=== PATIENT | male | born 1980 | race Caucasian/White ===

== ENCOUNTER 2016-04-11 21:43 | Observation (INO) | payer OTHER ==
[~2016-04-11] VITALS: Ht 162.6 cm; Wt 75.9 kg
[2016-04-12] VITALS (11 sets, daily range): BP systolic 102–122; BP diastolic 61–88; PULSE 72–110; RESP 16–20; Ht 162.6 cm; Wt 75.9 kg
[2016-04-12] MEDS ORDERED: morphine 2 MG INJ IV PRN (02:00)
[2016-04-12] MEDS ORDERED: METHYLPREDNISOLONE 125 MG INJ IV SCH (02:00)
[2016-04-12] MEDS ORDERED: ALBUTEROL/IPRATROPIUM (NEB) 3 ML AMP HHN PRN (02:00)
[2016-04-12 07:19] LABS: BASOPHILS % 0.1 % (0.0-2.0); HEMATOCRIT 43.5 % (42.0-52.0); HEMOGLOBIN 15.2 g/dl (14.0-18.0); LYMPHOCYTES # 0.6 10^3/ul (0.8-2.9); MEAN CORPUSCULAR HEMOGLOBIN 29.2 pg (29.0-33.0); MEAN CORPUSCULAR HGB CONC 34.9 g/dl (32.0-37.0); MEAN CORPUSCULAR VOLUME 83.6 fl (82.0-101.0); MEAN PLATELET VOLUME 7.6 fl (7.4-10.4); MONOCYTE # 0.1 10^3/ul (0.3-0.9); MONOCYTES % 2.6 % (0.0-11.0); NEUTROPHILS % 87.3 % (39.0-77.0); PLATELET COUNT 277 10^3/UL (140-440); RED CELL DISTRIBUTION WIDTH 12.5 % (11.5-14.5); UNCORRECTED WBC 5.7 10^3/ul (4.8-10.8); WHITE BLOOD COUNT 5.7 10^3/ul (4.8-10.8)
[2016-04-12 07:22] LABS: CONDITION 1
[2016-04-12 07:37] LABS: POTASSIUM 4.7 mmol/L (3.5-5.1)
[2016-04-12 07:39] LABS: CREATININE 0.77 mg/dl (0.61-1.24)
[2016-04-12 07:40] LABS: CALCIUM 8.8 mg/dl (8.4-10.2); MAGNESIUM 2.4 mg/dl (1.7-2.5)
--- NOTE | 2016-04-12 07:53 | HP ---
DATE OF ADMISSION: 04/12/2016 TIME: 6:15 a.m. CHIEF COMPLAINT: Shortness of breath. HISTORY OF PRESENT ILLNESS: The patient is a 36-year-old male with a history of asthma. He has had asthma since he was a child. The patient does take Advair at home, as well as albuterol nebulizer and an inhaler. He states that he mostly used the inhaler. The patient states that over the past 3 days he has been feeling worsening of his shortness of breath and asthma and yesterday it required him to come to the ED. He went to [facility]. He was noted to have a fever. He received s everal breathing treatments and did improve. He was transferred over to [facility] for ins urance reasons. He currently states that he feels much better and he has no other complaints. PAST MEDICAL HISTORY: Asthma. PAST SURGICAL HISTORY: Denies. HOME MEDICATIONS: 1. Advair. 2. Albuterol, both nebulizer and inhaler. ALLERGIES: 1. ACETAMINOPHEN. 2. IBUPROFEN. 3. SALICYLATES. FAMILY HISTORY: Mother with asthma. SOCIAL HISTORY: He smokes marijuana occasionally. Denies any tobacco abuse, any alcohol abuse, or drug abuse. REVIEW OF SYSTEMS: A 12-point review of systems was negative, except for that in the HPI. PHYSICAL EXAMINATION: VITAL SIGNS: At the outside facility the patient did have a fever. Temperature 37.6 Celsius curren tly, pulse 72, respiratory rate is 20, saturations 96%. GENERAL: In no acute distress, alert and oriented. HEENT: Normocephalic, atraumatic. LUNGS: Clear to auscultation. CARDIOVASCULAR: Regular rate and rhythm. ABDOMEN: Nondistended, nontender, soft. EXTREMITIES: No clubbing, cyanosis, or edema. LABORATORIES: From the outside facility showed a white count of 14.4, hemoglobin of 16.3, platelets are 258. Sodium is 136, potassium is 3.3, chloride is 100, CO2 is 26, glucose is 118, creatinine i s 1.0. Lactic acid was 2.0, mag was 2.0. Influenza A and B antigen test showed no antigen detected . DIAGNOSTICS: Chest x-ray showed no acute disease. ASSESSMENT AND PLAN: 1. Sepsis secondary to upper respiratory infection. The patient did meet sepsis criteria with a fe neftaly, white count and tachycardia. The patient has no pneumonia. The patient likely has an upper re spiratory infection. Influenza was negative. He may still have sensitive. Will treat with Finney iflu, as well as azithromycin and Rocephin. 2. Asthma exacerbation secondary to upper respiratory infection. Will continue with home Advair. Will give albuterol nebulizer as needed. Will give DuoNeb as needed. Will give IV steroids. Will get a pulmonology consultation. Will also treat the upper respiratory infection. 3. Prophylaxis. Ambulation. Dictated By: DANY OROZCO MD BS/NTS Conf#: [id number] DID#: [id number]
[2016-04-12] MEDS: OSELTAMIVIR 75 MG CAP PO SCH ×2 (08:47→20:12)
[2016-04-12] MEDS: SALMETEROL/FLUTICASONE 250/50 INHA INH SCH ×2 (08:48→20:13)
[2016-04-12] MEDS: CEFTRIAXONE 1 GM/50 ML (PMX) 50 ML IVPB SCH (08:58)
[2016-04-12] MEDS: AZITHROMYCIN 500MG/NS (PMX) 250 ML IVPB SCH (09:27)
[2016-04-12] MEDS: predniSONE 20 MG TAB PO SCH (13:28)
--- NOTE | 2016-04-12 13:43 | CONS ---
DATE OF ADMISSION: 04/12/2016 DATE OF CONSULTATION: 04/12/2016 TYPE OF CONSULTATION: Pulmonary. REASON FOR CONSULTATION: Shortness of breath. Thank you, Dr. Moralez, for this consultation. HISTORY OF PRESENT ILLNESS: This is a 36-year-old gentleman with a history of asthma since hoo d. No intubations or mechanical ventilation, no prolonged hospital stays, at this time presenting w ith a 3-day history of increasing shortness of breath, orthopnea and cough. Mild fever. No hemopty sis, no hematemesis. The patient was seen in the emergency room at [facility] and transfer red here to [facility] for insurance purposes. The patient states he takes Advair at home and albuterol nebulizers as needed. His symptoms are normally well controlled. He denies a ny nocturnal symptoms prior to this recent exacerbation. PAST MEDICAL HISTORY: Asthma. MEDICATIONS: Per chart. ALLERGIES: 1. TYLENOL. 2. IBUPROFEN. 3. SALICYLATE. FAMILY HISTORY: Paternal asthma. SOCIAL HISTORY: Occasional marijuana use. Denies any tobacco smoking. Occasional alcohol use. SYSTEMS REVIEW: A 12-point review of systems was negative, other than that mentioned above. PHYSICAL EXAMINATION: GENERAL: Well-nourished, well-developed gentleman, comfortable at rest, talking in full and complet e sentences. VITAL SIGNS: Afebrile. Pulse is 70, blood pressure 115/61, O2 saturation 96% on room air. NECK: Supple. No JVD or lymphadenopathy. CARDIAC EXAM: S1, S2. No added sounds or murmurs. CHEST: Diminished air entry bilaterally. ABDOMEN: Soft, nontender. No guarding, no rebound. EXTREMITIES: No cyanosis, clubbing or edema. NEUROLOGIC: Grossly intact. No focal deficits. LABORATORY: White count 5.7, hemoglobin 15.2, platelets 277. Chemistry within normal limits. IMPRESSION AND PLAN: 1. Asthma exacerbation. 2. Possible viral etiology. 3. Mild hypoxemia, clinically improving. The patient will need: 1. A prednisone taper. 2. Continue Advair. 3. Rescue inhalers. 4. Outpatient pulmonary function testing. 5. Deep vein thrombosis and gastrointestinal prophylaxis. Anticipate discharge either later today or tomorrow. Dictated By: MARTINA MACHADO/SWATHI Conf#: [id number] [facility]#: [id number]
[2016-04-13] VITALS (8 sets, daily range): BP systolic 118–141; BP diastolic 63–83; PULSE 63–110; RESP 18
[2016-04-13] MEDS: CEFTRIAXONE 1 GM/50 ML (PMX) 50 ML IVPB SCH (05:27)
[2016-04-13] MEDS: AZITHROMYCIN 500MG/NS (PMX) 250 ML IVPB SCH (07:22)
[2016-04-13] MEDS: SALMETEROL/FLUTICASONE 250/50 INHA INH SCH (08:29)
[2016-04-13] MEDS: predniSONE 20 MG TAB PO SCH (08:30)
[2016-04-13] MEDS: OSELTAMIVIR 75 MG CAP PO SCH (08:30)
[2016-04-13] MEDS ORDERED: AZIT500T2 PO (09:33)
[2016-04-13] MEDS ORDERED: MONT10TA21 PO (09:33)
[2016-04-13] MEDS ORDERED: ALBU18HF INHALATION (09:33)
[2016-04-13] MEDS ORDERED: ADV25050 INH (09:33)
[2016-04-13] MEDS ORDERED: PRED10TA PO (09:33)
--- NOTE | 2016-04-13 10:30 | PDOCDIS ---
Discharge Instructions DIAGNOSIS Discharge Diagnosis: 1. asthma exacerbation 2. acute bronchitis CONDITION Patient Condition: Stable HOME CARE INSTRUCTIONS: Diet Instructions: Low Fat /Cholesterol FOLLOW UP/APPOINTMENTS Appointments 1. Follow up with your primary care provider in one week OTHER ORDERS: Other Orders: 1. Call your primary care provider if you have worsening shortness of breath CAMILO WALTERS Apr 13, 2016 10:30
--- NOTE | 2016-04-13 13:03 | CONS ---
Date/Time of Note Date/Time of Note DATE: 04/13/16 TIME: 12:58 Consult Date/Type/Reason Admit Date/Time Apr 12, 2016 at 00:14 Initial Consult Date Type of Consultation: pulm Subjective no events. doing well with no SOB. Objective Vital Signs Date Time Temp Pulse Resp B/P Pulse Ox O2 Delivery O2 Flow Rate FiO2 04/13/16 11:38 98.1 103 18 141/77 95 04/12/16 03:41 21 Intake and Output 04/12/16 04/12/16 04/13/16 15:00 23:00 07:00 Intake Total 850 ml 200 ml Balance 850 ml 200 ml CHEST: Subtle wheezing but good air movement ABDOMEN: Soft, nontender. No guarding, no rebound. EXTREMITIES: No cyanosis, clubbing or edema. Results/Medications Result Diagram: 04/12/16 0645 04/12/16 0645 Medications Current Medications Morphine Sulfate (morphine) 2 mg Q4H PRN IV PAIN; Start 04/12/16 at 02:00 Oseltamivir Phosphate 75 mg 75 mg BID PO Last administered on 04/13/16 08:30; Admin Dose 75 MG; Start 04/12/16 at 09:00 Azithromycin 250 ml @ 250 mls/hr Q24H IVPB Last administered on 04/13/16 07:22 ; Admin Dose 250 MLS/HR; Start 04/12/16 at 06:30 Ceftriaxone Sodium (Rocephin) 50 ml @ 100 mls/hr Q24H IVPB Last administered on 04/13/16 05:27; Admin Dose 100 MLS/HR; Start 04/12/16 at 06:30 Salmeterol Xinafoate/ Fluticasone (Advair 250/50 Diskus) 1 inh BID INH Last administered on 04/13/16 08:29; Admin Dose 1 INH; Start 04/12/16 at 09:00 Prednisone (Prednisone) 40 mg DAILY PO Last administered on 04/13/16 08:30; Admin Dose 40 MG; Start 04/12/16 at 12:30 Assessment/Plan Additional Assessment/Plan CHEST: Diminished air entry bilaterally. ABDOMEN: Soft, nontender. No guarding, no rebound. EXTREMITIES: No cyanosis, clubbing or edema. NEUROLOGIC: Grossly intact. No focal deficits. LABORATORY: White count 5.7, hemoglobin 15.2, platelets 277. Chemistry within normal limits. IMPRESSION: 1. Asthma exacerbation. 2. Possible viral etiology. RECS: 1. CS taper 2. LABA/ICS; prn albuterol 3. Outpatient PFTs and pulm f/u in 1 week. LISANDRA SHEIKH MD Apr 13, 2016 13:03
--- NOTE | 2016-04-13 15:44 | DS ---
Date/Time of Note Date/Time of Note DATE: 04/13/16 TIME: 15:41 Discharge Summary Admission/Discharge Info Admit Date/Time Apr 12, 2016 at 00:14 Discharge Date/Time Apr 13, 2016 at 14:07 Final Diagnosis 1. Asthma with exacerbation Patient Condition: Stable Hospital Course This is a 36-year-old male with history of asthma since childhood did come to [facility] due to reports of 3 days duration of worsening of his breathing. Patient of note does take Advair as well as albuterol nebulizer and inhaler at home. When he came to [facility] he was noted with bronchospasm and wheezing. He was optimized with steroid taper as well as bronchodilators. [employer] was consulted to help with respiratory management. During his course of stay did improve. He did have good response to steroid treatment. His wheezing did subside during his course of stay. He did report better breathing. Patient was instructed to take his medications as prescribed. The plan of care was discussed with the patient and patient did verbalize his understanding. On the day of discharge patient was in stable condition Discussed plan of care with Disposition: Home. Condition: Stable Home Meds Active Scripts Montelukast Sodium* (Singulair*) 10 Mg Tablet, 10 MG PO QHS, #30 TAB Prov:CAMILO WALTERS 04/13/16 Prednisone* (Prednisone*) 10 Mg Tab, 10 MG PO DAILY, #14 TAB 1. Take 40mg by mouth daily for 2 days 2. then 20mg by mouth daily for 2 days 3. then 10mg by mouth daily for 2 days Prov:CAMILO WALTERS 04/13/16 Albuterol Sulfate* (Ventolin HFA*) 18 Gm Hfa.aer.ad, 2 PUFF INHALATION Q4H, #1 INHALER Prov:CAMILO WALTERS 04/13/16 Azithromycin* (Zithromax* Tri-Esau) 500 Mg Tablet, 500 MG PO DAILY for 3 Days, TAB Prov:CAMILO WALTERS 04/13/16 Salmeterol Xinaf/Fluticasone* (Advair*) 250-50 Diskus Inhaler, 1 INH INH BID for 30 Days Prov:CAMILO WALTERS 04/13/16 Follow-up Plan CONDITION Patient Condition: Stable HOME CARE INSTRUCTIONS: Diet Instructions: Low Fat /Cholesterol FOLLOW UP/APPOINTMENTS Appointments 1. Follow up with your primary care provider in one week OTHER ORDERS: Other Orders: 1. Call your primary care provider if you have worsening shortness of breath CAMILO WALTERS Apr 13, 2016 15:44
== END 2016-04-13 14:07 | disposition home or self-care (01) ==
LOC: INTOOBSV 04-12 00:14 → MS4 04-12 00:14
PROVIDERS: ADMIT Internal Medicine; ATTEND Internal Medicine
DX: J45.901 Unspecified asthma with (acute) exacerbation (principal)
CPT/HCPCS: 80048; 83735; 85025; 87081; 94664; G9035; J0456; J0696; J2930; J7512; Z7500; Z7610; 99217; G0378